=== PATIENT | male | born 1945 ===

== ENCOUNTER 2019-09-19 08:45 | Inpatient (IN) | payer OTHER ==
[~2019-09-19] VITALS: Ht 180.3 cm; Wt 104.3 kg
[2019-09-19] MEDS ORDERED: METFORMIN HCL1000 M2 PO (11:57)
[2019-09-19] MEDS ORDERED: COZAAR50 MG PO (11:57)
[2019-09-19] MEDS ORDERED: ASPIR 8181 MG PO (11:58)
[2019-09-19] MEDS ORDERED: SIMVASTATIN10 MG PO (11:58)
[2019-09-19] MEDS ORDERED: VITAMIN D31250 MCG PO (12:13)
[2019-09-25] MEDS ORDERED: ELIQUIS2.5 MG PO (14:49)
[2019-09-25] MEDS ORDERED: PERCOCET 5-3251 EACH PO (14:49)
[2019-09-25] MEDS ORDERED: CIPRO500 MG PO (14:49)
== END 2019-09-25 15:38 | DRG 470 ==
LOC: O/R 09-23 06:10 → SURG 09-23 06:10 → SURH 09-23 07:00 → O/R 09-23 08:45 → SURG 09-23 09:40
PROVIDERS: ADMIT Orthopaedic Surgery; ATTEND Orthopaedic Surgery
PROC: 0MNN0ZZ Release Right Knee Bursa and Ligament, Open Approach (ICD-10-PCS; 2019-09-23)
PROC: 0SRC0JZ Replacement of Right Knee Joint with Synthetic Substitute, Open Approach (ICD-10-PCS; principal; 2019-09-23 07:00)
DX: M17.11 Unilateral primary osteoarthritis, right knee (principal); D62 Acute posthemorrhagic anemia; M85.461 Solitary bone cyst, right tibia and fibula; M22.11 Recurrent subluxation of patella, right knee; I10 Essential (primary) hypertension; E11.9 Type 2 diabetes mellitus without complications; Z86.711 Personal history of pulmonary embolism

== ENCOUNTER 2020-04-19 10:11 | Outpatient (CLI) | payer OTHER ==
[~2020-04-19 10:11] MED LIST: ASPIR 8181 MG PO; CIPRO500 MG PO; COZAAR50 MG PO; ELIQUIS2.5 MG PO; METFORMIN HCL1000 M2 PO; PERCOCET 5-3251 EACH PO; SIMVASTATIN10 MG PO; VITAMIN D31250 MCG PO
== END 2020-04-19 10:20 | disposition home or self-care (01) ==
LOC: LAB 10:11
PROVIDERS: ATTEND Internal Medicine
DX: D50.8 Other iron deficiency anemias (principal); I10 Essential (primary) hypertension; R74.02 Elevation of levels of lactic acid dehydrogenase [LDH]; K76.89 Other specified diseases of liver; D51.1 Vitamin B12 deficiency anemia due to selective vitamin B12 malabsorption with proteinuria; D51.0 Vitamin B12 deficiency anemia due to intrinsic factor deficiency; R97.0 Elevated carcinoembryonic antigen [CEA]; R97.8 Other abnormal tumor markers; R97.20 Elevated prostate specific antigen [PSA]; D62 Acute posthemorrhagic anemia; M17.11 Unilateral primary osteoarthritis, right knee; I82.432 Acute embolism and thrombosis of left popliteal vein; Z86.711 Personal history of pulmonary embolism; D64.89 Other specified anemias; Z13.1 Encounter for screening for diabetes mellitus; E78.2 Mixed hyperlipidemia; E11.65 Type 2 diabetes mellitus with hyperglycemia; N39.0 Urinary tract infection, site not specified; D11.0 Benign neoplasm of parotid gland; E56.8 Deficiency of other vitamins; E55.9 Vitamin D deficiency, unspecified; K51.511 Left sided colitis with rectal bleeding; M05.741 Rheumatoid arthritis with rheumatoid factor of right hand without organ or systems involvement; M06.9 Rheumatoid arthritis, unspecified; D44.0 Neoplasm of uncertain behavior of thyroid gland; D68.8 Other specified coagulation defects; Z12.11 Encounter for screening for malignant neoplasm of colon

== ENCOUNTER → 2020-11-03 07:47 | Outpatient (CLI) | payer OTHER | END | disposition home or self-care (01) | LOC: LAB 07:47 | PROVIDERS: ATTEND Internal Medicine Hematology & Oncology | DX: D51.3 Other dietary vitamin B12 deficiency anemia (principal); D51.1 Vitamin B12 deficiency anemia due to selective vitamin B12 malabsorption with proteinuria; I10 Essential (primary) hypertension; D62 Acute posthemorrhagic anemia; E11.9 Type 2 diabetes mellitus without complications; M17.11 Unilateral primary osteoarthritis, right knee; I82.432 Acute embolism and thrombosis of left popliteal vein; Z86.711 Personal history of pulmonary embolism ==